=== PATIENT | female | born 1950 | race Caucasian/White ===

== ENCOUNTER 2018-02-02 14:04 | Emergency (ER) | payer MEDICARE, OTHER | END 2018-02-02 17:34 | disposition home or self-care (01) | LOC: FTE 14:04 | DX: S01.21XA Laceration without foreign body of nose, initial encounter (principal); S02.2XXA Fracture of nasal bones, initial encounter for closed fracture; S09.93XA Unspecified injury of face, initial encounter; J45.909 Unspecified asthma, uncomplicated; W01.0XXA Fall on same level from slipping, tripping and stumbling without subsequent striking against object, initial encounter; Y92.9 Unspecified place or not applicable | CPT/HCPCS: 70450; 70486; 99285-25 ==

== ENCOUNTER 2018-02-04 14:37 | Emergency (ER) | payer MEDICARE, OTHER | END 2018-02-04 17:08 | disposition home or self-care (01) | LOC: FTE 14:37 | DX: S02.2XXA Fracture of nasal bones, initial encounter for closed fracture (principal); J45.909 Unspecified asthma, uncomplicated; W18.49XA Other slipping, tripping and stumbling without falling, initial encounter; Y92.9 Unspecified place or not applicable | CPT/HCPCS: 99283 ==